=== PATIENT | female | born 1945 | race Caucasian/White ===

== ENCOUNTER → 2024-05-22 12:12 | Outpatient (REF) | payer MEDICARE, OTHER, SELFPAY ==
[2024-05-22 12:40] VITALS: BP 122/56; BP_SYST 59
[2024-05-22 13:46] VITALS: BP 137/67
== END ==
LOC: RADI 12:12
PROVIDERS: ATTENDING PHYSICIAN Physician Assistant Medical
DX: M79.651 Pain in right thigh (principal); S76.311A Strain of muscle, fascia and tendon of the posterior muscle group at thigh level, right thigh, initial encounter; X58.XXXA Exposure to other specified factors, initial encounter; M62.89 Other specified disorders of muscle
CPT/HCPCS: 20551; 76882

== ENCOUNTER 2024-10-26 09:40 | Emergency (ER) | payer MEDICARE, OTHER, SELFPAY ==
[2024-10-26 09:43] VITALS: BP 140/74
[2024-10-26 10:56] VITALS: BMI 33.4
[2024-10-26 11:08] VITALS: BP 143/66
--- NOTE | 2024-10-26 11:50 | EDRN ---
Chenhco Jones [employer] TECHNICIAN in to see pt.
--- NOTE | 2024-10-26 11:53 | ED.GENMED ---
History of Present Illness
General
Chief Complaint: Musculo-Skeletal Complaint
Source: patient
Exam Limitations: none
Time Seen by Provider: 10/26/24 11:27
Nursing documentation reviewed up to this point in time: agreed with
History of Present Illness
History of Present Illness:
Patient is a 79-year-old female who presents to the ER for evaluation of left knee pain. She has had bilateral knee pain for the past 2 weeks. She saw [facility]opedic [facility] with [facility] October 15 had steroid injections and was prescribed
meloxicam. She believes she overdid it yesterday and now cannot bear weight on the knee. She does complain of some swelling to the left lower leg/ankle region. she typically reports this leg swells more than the right leg. She denies any exact
injury. She did take her meloxicam today. She denies any redness fever chills.
Past History
Past History
ED Past Medical History: GERD, HTN, Hypercholesterolemia, Hypothyroidism and Other (Sleep apnea, wears CPAP, Hiatal hernia, )
ED Past Surgical History: Appendectomy, Cholecystectomy and Gynecological
Social History
Tobacco: Smoker (/ ppd)
Alcohol: None
Drug: None
Review of Systems
Review of Systems
Allergies reviewed?: Yes
All Other Systems: ROS reviewed and negative except as documented in HPI and ROS
Constitutional: Reports no symptoms
Musculoskeletal: Reports other (left knee pain )
Skin: Reports no symptoms
Neurological: Reports no symptoms
Psychiatric: Reports no symptoms
Phy Exam
General Physical Exam
General Presentation: no apparent distress
General age: appears stated age
General Skin: warm and dry
General Habitus: normal
General Mental: alert
General Hydration: appears well hydrated
Neurological Exam
Neurological Exam: alert and oriented x3
Musculoskeletal Exam
Musculoskeletal Exam: other (lle with strong pulses mild lower leg ankle /lower leg swelling ; no palpable effusion to left knee no erythema able to flex and extend mild discomfort)
Skin Exam
Skin Exam: normal color and warm/dry
Psychiatric Exam
Psychiatric Exam: normal mood/affect
Course
Orders/Labs/Results
Orders:
Orders
10/26/24 11:50
Knee, Left 4 or More Views [CR Knee - Left 4 Or More View*] Urgent
Comment:
Reason For Exam: icnreased pain
10/26/24 11:52
Acetaminophen [Tylenol] 1,000 mg PO NOW STA
10/26/24 11:53
Venous Doppler Lwr Ext Left [US Periph Venous LOWER Ext LT] Urgent
Comment:
Reason For Exam: swelling to left lower leg
Vital Signs
Initial and Last Documented VS:
Initial Vital Signs
Temp Pulse Resp BP Pulse Ox
98.2 F 68 16 140/74 99
10/26/24 09:43 10/26/24 09:43 10/26/24 09:43 10/26/24 09:43 10/26/24 09:43
Last Documented Vital Signs
Temp Pulse Resp BP Pulse Ox
98.2 F 59 16 133/67 99
10/26/24 09:43 10/26/24 13:32 10/26/24 13:32 10/26/24 13:32 10/26/24 13:32
MDM/Problems Addressed
Differential Diagnosis Includes:
Not limited to tendinitis overuse less likely fracture less likely DVT
MDM/Problems Addressed:
Patient with knee issues overdid it recently and now has increased pain to left knee. She has no evidence of infection on exam ultrasound negative and no acute findings on x-ray. Will give patient a longer more supportive knee immobilizer.
Patient also requested prescription for wheelchair as needed as she has an upcoming family members graduation coming up. She is on meloxicam. She did get Tylenol here which has improved her symptoms and she was not taking Tylenol at home. I did
recommend she alternate meloxicam with Tylenol will recommend ice as she overdid it recently with outpatient Ortho follow-up.
*Radiology
Radiology exam reviewed: radiology read reviewed
*Pulse Oximetry
Patient hypoxic: no
*Critical Care Note
Total Time (30-74mins, 75-104mins- exclusive of procedures): Not Applicable
ED Attending Note
-
Portions of this chart may have been created with voice recognition software.� Occasional wrong word or��sound alike� substitutions may have occurred due to the inherent limitations of voice recognition software.
Discharge Plan
Departure
Patient Disposition: Home (Routine Discharge)
Date of Disposition: 10/26/24
Time of Disposition: 13:43
Patient with high blood pressure during this ER visit?: Yes
Condition: Fair
Covid-19: Not Applicable
Discharge Problem:
knee pain
Instructions: Overuse Injuries (DC), Knee pain - ED discharge instructions
Prescriptions:
No Action
docusate sodium [Colace] 100 mg capsule
100 mg PO DAILY Qty: 30 0RF
Referrals:
WELLINGTON ROD, [Family Provider]
Activity Restrictions/Additional Instructions:
Wear immobilizer for support and limit weightbearing. You may use wheelchair as well. Do not sleep with immobilizer. Since you likely over did activity, please rest and limit weight bearing, ice the affected area for the next 24 to 48 hours
20 minutes at a time several times a day.
Continue meloxicam but start Tylenol as needed.
Follow-up with orthopedics in the next several days return if any worsening of symptoms
Interventions
Interventions:
*Risk Screen - Suicide Last Done: 10/26/24 09:43
*General Assessment Last Done: 10/26/24 10:57
*Neglect/Abuse Screening Last Done: 10/26/24 09:43
*ED- Fall Risk Assessment Last Done: 10/26/24 10:57
*ED COVID-19 Vaccine History Last Done: 10/26/24 10:57
ED-Musculoskeletal Assessment Last Done: 10/26/24 10:58
Discharge Date and Time
Print Language: MAURITANIAN
[2024-10-26] MEDS: TYLENOL 1000 MG PO (12:02)
[2024-10-26 13:32] VITALS: BP 133/67
== END 2024-10-26 14:00 | disposition home or self-care (01) ==
LOC: EMR 09:40
PROVIDERS: EMERGENCY PHYSICIAN Emergency Medicine; FAMILY PHYSICIAN Student in an Organized Health Care Education/Training Program
DX: M25.562 Pain in left knee (principal); R22.42 Localized swelling, mass and lump, left lower limb; K21.9 Gastro-esophageal reflux disease without esophagitis; I10 Essential (primary) hypertension; E78.00 Pure hypercholesterolemia, unspecified; E03.9 Hypothyroidism, unspecified; G47.30 Sleep apnea, unspecified; F17.210 Nicotine dependence, cigarettes, uncomplicated; Z90.49 Acquired absence of other specified parts of digestive tract
CPT/HCPCS: 99284; 73564; 93971

== ENCOUNTER → 2025-01-01 09:05 | Outpatient (REF) | payer MEDICARE, OTHER, SELFPAY | LOC: RAD 09:05 | DX: Z72.0 Tobacco use (principal); Z82.49 Family history of ischemic heart disease and other diseases of the circulatory system; R39.11 Hesitancy of micturition | CPT/HCPCS: 76770 ==